=== PATIENT | male | born 1955 | race Caucasian/White ===

== ENCOUNTER → 2016-07-01 | Outpatient (REF) | payer BC | LOC: M LAB REF 14:56 | PROVIDERS: ATTEND Nurse Practitioner Adult Health | DX: Z22.322 Carrier or suspected carrier of Methicillin resistant Staphylococcus aureus (principal) ==

== ENCOUNTER → 2016-07-14 | Outpatient (REF) | payer BC | LOC: M LAB REF 12:03 | PROVIDERS: ATTEND Nurse Practitioner Adult Health | DX: A49.01 Methicillin susceptible Staphylococcus aureus infection, unspecified site (principal) ==

== ENCOUNTER → 2016-07-29 | Outpatient (REF) | payer BC | LOC: M LAB REF 16:39 | PROVIDERS: ATTEND Nurse Practitioner Adult Health | DX: B95.62 Methicillin resistant Staphylococcus aureus infection as the cause of diseases classified elsewhere (principal) ==

== ENCOUNTER 2018-03-01 06:00 | Day surgery (SDC) | payer BC ==
[2018-03-01] MEDS ORDERED: fentaNYL 100 MCG/2 ML INJECTION (J3010) As Ordered (06:43)
[2018-03-01] MEDS ORDERED: MIDAZOLAM INJ 2 MG/2 ML VIAL (J2250) As Ordered (06:43)
[2018-03-01] MEDS: LIDOCAINE 3.5 % 1ML OPHTH TOPICAL GEL OU (06:50)
[2018-03-01] MEDS ORDERED: ONDANSETRON 4MG/2ML VIAL (J2405) As Ordered (07:24)
[2018-03-01] MEDS ORDERED: PROPOFOL 200 MG/20 ML VIAL As Ordered (07:43)
[2018-03-01] MEDS: SODIUM BICARBONATE 8.4% INJ 50MEQ 50 ML VIAL As Ordered (07:51)
[2018-03-01] MEDS: TOBRADEX OPHTH OINT 3.5 GM As Ordered (07:51)
[2018-03-01] MEDS: LIDOCAINE 2% W/EPIN INJ 20ML **PRES FREE As Ordered (07:51)
[2018-03-01] MEDS: METHYLENE BLUE 0.5% (5MG/ML) 10 ML AMP (PROVAYBLUE)(Q9968 PER 1MG) As Ordered (07:52)
[2018-03-01] MEDS: POVIDONE-IODINE 5% OPHTH PREP SOL 30ML As Ordered (07:52)
[2018-03-01] MEDS: VASOPRESSIN INJ 20 UNITS/ML VIAL As Ordered (07:53)
[2018-03-01] MEDS: TETRACAINE 0.5% OPHTH SOLN 4ML As Ordered (07:54)
[2018-03-01] MEDS ORDERED: ONDANSETRON 4MG/2ML VIAL (J2405) IV (08:30)
== END 2018-03-01 08:42 | disposition home or self-care (01) ==
LOC: M SDC 06:00
DX: H02.834 Dermatochalasis of left upper eyelid (principal); H02.831 Dermatochalasis of right upper eyelid; I10 Essential (primary) hypertension; E78.1 Pure hyperglyceridemia; K21.9 Gastro-esophageal reflux disease without esophagitis; M54.5 Low back pain; R05 Cough; R06.83 Snoring; G47.9 Sleep disorder, unspecified; E66.09 Other obesity due to excess calories; Z68.38 Body mass index [BMI] 38.0-38.9, adult; Z88.5 Allergy status to narcotic agent; Z79.899 Other long term (current) drug therapy; Z79.82 Long term (current) use of aspirin
CPT/HCPCS: 15823

== ENCOUNTER → 2020-04-03 | Outpatient (REF) | payer BC ==
[~2020-04-03] MED LIST: ASPI81TA26 PO; FENO145T7 PO; IRBE150T7 PO; LORA-243 PO; VITA100067 PO
== END ==
LOC: M LAB REF 10:36
PROVIDERS: ATTEND Physician Assistant Medical
DX: R22.42 Localized swelling, mass and lump, left lower limb (principal); M79.605 Pain in left leg

== ENCOUNTER → 2020-09-05 | Outpatient (CLI) | payer BC ==
--- NOTE | 2020-09-05 15:52 | REP ---
INDICATION: SOB. COMPARISON: No comparison chest x-ray. TECHNIQUE: Four views provided... FINDINGS: The lungs are well inflated and free of infiltrate. The pleural angles are sharp. The heart size is normal. Pulmonary vasculature is not increased. No significant bony abnormality is seen. There are mild degenerative changes in the thoracic spine. IMPRESSION: No active disease.. <Electronically signed by Se Powers > 09/05/20 [id number]
== END ==
LOC: M WUC 15:29
PROVIDERS: ATTEND Nurse Practitioner Adult Health
DX: R07.9 Chest pain, unspecified (principal); R06.09 Other forms of dyspnea

== ENCOUNTER → 2022-12-29 | Outpatient (CLI) | payer BC, MEDICARE | LOC: M WUC 10:36 | PROVIDERS: ATTEND Nurse Practitioner Adult Health | DX: M54.50 Low back pain, unspecified (principal) ==

== ENCOUNTER → 2024-02-22 | Outpatient (CLI) | payer MEDICARE ==
[~2024-02-22] MED LIST changes: +IRBE150T27 PO; -IRBE150T7 PO
== END ==
LOC: M RAD 12:33
PROVIDERS: ATTEND Nurse Practitioner Adult Health
DX: N50.9 Disorder of male genital organs, unspecified (principal)

== ENCOUNTER → 2024-02-24 | Outpatient (REF) | payer MEDICARE | LOC: M SMT 17:07 | PROVIDERS: ATTEND Urology | DX: N49.2 Inflammatory disorders of scrotum (principal) ==

== ENCOUNTER → 2024-05-03 | Outpatient (CLI) | payer MEDICARE | LOC: M RAD 11:23 | PROVIDERS: ATTEND Physician Assistant | DX: N49.2 Inflammatory disorders of scrotum (principal); N50.3 Cyst of epididymis; N43.3 Hydrocele, unspecified ==